=== PATIENT | female | born 1965 | race Caucasian/White ===

== ENCOUNTER 2020-12-19 19:13 | Emergency (ER) | payer OTHER ==
[2020-12-19 20:54] LABS: HEMOGLOBIN 13.1 gm/dl (12.3-15.3); RED BLOOD COUNT 4.1 M/UL (4.00-5.10); WHITE BLOOD COUNT 6.7 K/UL (4.5-11.0)
[2020-12-19 21:18] LABS: BUN/CREATININE RATIO 16 (0-10)
[2020-12-19] MEDS ORDERED: OMNICEF 300 MG300 MG PO (22:13)
[2020-12-19] MEDS ORDERED: TESSALON PERLE100 MG PO (22:13)
[2020-12-19] MEDS ORDERED: MEDROL DOSEPAK 24 MG PO (22:13)
== END 2020-12-19 22:30 | disposition home or self-care (01) ==
LOC: ER1 19:13
PROVIDERS: Physician Assistant
DX: J40 Bronchitis, not specified as acute or chronic (principal); J98.01 Acute bronchospasm; N39.0 Urinary tract infection, site not specified; F17.210 Nicotine dependence, cigarettes, uncomplicated; Z20.822 Contact with and (suspected) exposure to COVID-19; Z90.710 Acquired absence of both cervix and uterus; Z88.0 Allergy status to penicillin; Z88.8 Allergy status to other drugs, medicaments and biological substances
CPT/HCPCS: 0240U; 71045; 80053; 81001; 82550; 82553; 83874; 84484; 85025; 87086; 96372; 99284; J1100; J1885

== ENCOUNTER 2021-01-09 19:31 | Emergency (ER) | payer OTHER ==
[~2021-01-09 19:31] MED LIST: MEDROL DOSEPAK 24 MG PO; OMNICEF 300 MG300 MG PO; TESSALON PERLE100 MG PO
[2021-01-09 21:23] LABS: HEMOGLOBIN 15.6 gm/dl (12.3-15.3); RED BLOOD COUNT 4.86 M/UL (4.00-5.10); WHITE BLOOD COUNT 9.1 K/UL (4.5-11.0)
[2021-01-09 21:46] LABS: BUN/CREATININE RATIO 21 (0-10)
== END 2021-01-09 23:10 | disposition home or self-care (01) ==
LOC: ER1 19:31
PROVIDERS: Family Medicine
DX: G89.29 Other chronic pain (principal); M25.551 Pain in right hip; M25.552 Pain in left hip; R07.9 Chest pain, unspecified; F10.10 Alcohol abuse, uncomplicated; Y90.9 Presence of alcohol in blood, level not specified; I10 Essential (primary) hypertension; Z90.710 Acquired absence of both cervix and uterus; F17.200 Nicotine dependence, unspecified, uncomplicated; Z88.8 Allergy status to other drugs, medicaments and biological substances
CPT/HCPCS: 71045; 73502; 80053; 81001; 82550; 82553; 83874; 84484; 85025; 93005; 99284

== ENCOUNTER 2021-02-23 13:01 | Emergency (ER) | payer OTHER | END 2021-02-23 16:47 | disposition left against medical advice (07) | LOC: ER1 13:01 | DX: Z53.21 Procedure and treatment not carried out due to patient leaving prior to being seen by health care provider (principal) ==